=== PATIENT | male | born 2000 | race Hispanic/Latino ===

== ENCOUNTER 2022-01-27 13:41 | Emergency (ER) | payer SELFPAY ==
--- OUTSIDE RECORDS SUMMARY | 2022-01-27 13:44 | XMS REPORT | Continuity of Care Document ---
:2000 Author Organization [facility] t Address [address] [place] [address] Care Team Providers Name Role Phone Pcp, Does Not Have A Primary Care Physician CAIT Attending Clinician Unavailable Doctor Unassigned, Name Attending Clinician Unavailable Problems This patient has no known problems. Allergies, Adverse Reactions, Alerts Allergy Allergy Status Severity Reaction(s) Onset Inactive Treating Comm ents Source Name Type Date Date Clinician NO KNOWN Drug Active Univers ALLERGIE Class ity of S [facility] Social History Social Habit Start Date Stop Date Quantity Comments Source Sex Assigned At [birth year] [facility] 00:00:00 00:00:00 [facility] Smoking Status Start Date Stop Date Source Unknown if ever smoked [facility] Medications This patient has no known medications. Procedures Procedure Date / Time Performed Performing Clinician [facility] e CONSENT/REFUSAL FOR 2022-01-27 14:14:29 Doctor Unassigned, No Un [facility] DIAGNOSIS AND Name [facility] TREATMENT Encounters Start End Encounter Admission Attending Care Care Encounter Source Date/Time Date/Time Type Type Clinicians Facility Department ID 2022-01-27 2022-01-27 Outpatient R CAIT [facility] [id number] Univers 09:20:00 09:20:00 KWADWO lang o f [facility] 2022-01-27 2022-01-27 Orders Doctor MICKEY [id number] Univers 00:00:00 00:00:00 Only Unassigned, CHAVA [id number] [facility] [id number] Jefry as [phone] [place] [id number] Branch Results This patient has no known results.
[2022-01-27] MEDS ORDERED: METOCLOPRAMIDE 10 MG/2mL INJ ONE (16:07)
[2022-01-27] MEDS ORDERED: DIPHENHYDRAMINE 50 MG/ML VIAL ONE (16:07)
[2022-01-27] MEDS ORDERED: NA CHLORIDE 0.9% 1,000 ML ONE (16:08)
[2022-01-27] MEDS ORDERED: FAMOTIDINE 20 MG/2 ML VIAL IV ONE (16:08)
[2022-01-27 16:40] LABS: Absolute Lymphocytes (CBC) 1.5 K/uL (0.7-4.9); Hematocrit 52.7 % (39.6-49.0); Lymphocytes % 15.1 % (15.3-44.8); MPV 8.3 fL (7.6-11.3); RBC Red Blood Cell Count 6.02 M/uL (4.33-5.43)
[2022-01-27 16:53] LABS: Albumin 4.6 g/dL (3.4-5.0); Bilirubin Total 0.9 mg/dL (0.2-1.0); Potassium 3.7 mmol/L (3.5-5.1)
--- NOTE | 2022-01-27 17:20 | RAD REPORT ---
EXAM DESCRIPTION: CTAbdomen Pelvis W Contrast - 01/27/2022 5:14 pm CLINICAL HISTORY: Abdominal pain. ABD PAIN COMPARISON: No comparisons TECHNIQUE: Biphasic CT imaging of the abdomen and pelvis was performed with 100 ml non-ionic IV cont rast. All CT scans are performed using dose optimization technique as appropriate and may include automated exposure control or mA/KV adjustment according to patient size. FINDINGS: The lung bases are clear.Small hiatal hernia. Cholecystectomy. The liver, spleen, pancreas, adrenal glands and kidneys are within normal limits. No bowel obstruction, free air, free fluid or abscess. The appendix is normal. No evidence of signi ficant lymphadenopathy. No suspicious bony findings. IMPRESSION: No acute intra-abdominal or pelvic finding.
--- NOTE | 2022-01-27 17:53 | ER ---
Nurse's Notes [facility] Name: Memo Estevez Age: 21 yrs Sex: Male : 2000 Arrival Date: 01/27/2022 Time: 13:43 Bed 13 Private MD: Diagnosis: Vomiting Presentation: 01/27 14:14 Chief complaint: Patient states: "I have been throwing up a lot. since last night. I jd3 have had this issue before.". Coronavirus screen: At this time, the client does not indicate any symptoms associated with coronavirus-19. Ebola Screen: No symptoms or risks identified at this time. Initial Sepsis Screen: Does the patient meet any 2 criteria? No. Patient's initial sepsis screen is negative. Does the patient have a suspected source of infection? No. Patient's initial sepsis screen is negative. Risk Assessment: Do you want to hurt yourself or someone else? Patient reports no desire to harm self or others. Onset of symptoms was January 26, 2022. 14:14 Method Of Arrival: Ambulatory [facility] 14:14 Acuity: RAMAN 3 jd3 Triage Assessment: 15:30 General: Appears distressed, uncomfortable, Behavior is cooperative, appropriate for bp age, anxious, crying. Pain: Complains of pain in abdomen. EENT: No deficits noted. Neuro: No deficits noted. Cardiovascular: No deficits noted. Respiratory: No deficits noted. GI: Reports nausea, vomiting. : No signs and/or symptoms were reported regarding the genitourinary system. Derm: No deficits noted. Musculoskeletal: No deficits noted. Historical: - Allergies: 14:15 No Known Allergies; jd3 - Home Meds: 14:15 None [Active]; jd3 - PMHx: 14:15 None; jd3 - PSHx: 14:15 Cholecystectomy; jd3 - Immunization history:: Adult Immunizations up to date, Client reports receiving the 1st dose of the Covid vaccine, Flu vaccine is not up to date. - Social history:: Smoking status: Reported history of juuling and/or vaping. Screenin:30 Abuse screen: Denies threats or abuse. Denies injuries from another. Nutritional bp screening: No deficits noted. Tuberculosis screening: No symptoms or risk factors identified. Fall Risk None identified. Assessment: 15:30 General: SEE TRIAGE NOTE. bp 16:30 Reassessment: No changes from previously documented assessment. Patient and/or family bp updated on plan of care and expected duration. Pain level reassessed. GI: Abdomen is non-distended. 18:30 Reassessment: PT D/C HOME AMBULATORY, DX WITH VOMITING. bp Vital Signs: 14:15 BP 140 / 97; Pulse 86; Resp 17 S; Temp 98.2(TE); Pulse Ox 98% on R/A; Weight 104.33 kg jd3 (R); Height 5 ft. 8 in. (172.72 cm) (R); Pain 4/10; 16:30 BP 122 / 61; Pulse 62; Resp 16; Pulse Ox 100% ; bp 14:15 Body Mass Index 34.97 (104.33 kg, 172.72 cm) jd3 ED Course: 13:43 Patient arrived in ED. mr 14:15 Triage completed. jd3 14:16 Arm band placed on. [facility] 14:18 Aurelio Petty PA is PHCP. [facility] 14:18 Sergio Ramsey MD is Attending Physician. m 15:24 Silviano Sheridan, LILLIAN is Primary Nurse. bp 15:30 Patient has correct armband on for positive identification. Bed in low position. Call bp light in reach. Side rails up X2. 16:00 Inserted saline lock: 20 gauge in right forearm, using aseptic technique. Blood bp collected. 17:16 CT Abd/Pelvis - IV Contrast Only In Process Unspecified. EDMS 18:34 No provider procedures requiring assistance completed. IV discontinued, intact, bp bleeding controlled, No redness/swelling at site. Pressure dressing applied. Administered Medications: 16:00 Drug: NS 0.9% 1000 ml Route: IV; Rate: 1 bolus; Site: right forearm; bp 18:35 Follow up: IV Status: Completed infusion; IV Intake: 1000ml bp 16:00 Drug: Pepcid (famotidine) 20 mg Route: IVP; Site: right forearm; bp 17:34 Follow up: Response: No adverse reaction bp 16:00 Drug: Reglan (metoCLOPramide) 20 mg Route: IVP; Site: right forearm; bp 17:34 Follow up: Response: No adverse reaction bp 16:00 Drug: diphenhydrAMINE 12.5 mg Route: IVP; Site: right forearm; bp 17:34 Follow up: Response: No adverse reaction bp Intake: 18:35 IV: 1000ml; Total: 1000ml. bp Outcome: 17:52 Discharge ordered by MD. dudley 18:34 Discharged to home ambulatory. bp 18:34 Condition: stable 18:34 Discharge instructions given to patient, Instructed on discharge instructions, follow up and referral plans. medication usage, Demonstrated understanding of instructions, follow-up care, medications, Prescriptions given X 1. 18:35 Patient left the ED. bp Signatures: Dispatcher [employer] EDMS Aurelio Petty PA PA jmm Rivera, Mary mr WebsterBrandon RN RN jSilviano Rodriguez RN RN bp
--- NOTE | 2022-01-27 17:53 | EDPHYS ---
Physician Documentation [facility] Name: Memo Estevez Age: 21 yrs Sex: Male : 2000 Arrival Date: 01/27/2022 Time: 13:43 Bed 13 Private MD: ED Physician Sergio Ramsey HPI: 01/27 15:35 This 21 yrs old Male presents to ER via Ambulatory with complaints of Vomiting.jmm 15:35 The patient presents to the emergency department with nausea, vomiting. Onset: The jmm symptoms/episode began/occurred acutely, today. Possible causes: flare up of bowel problem. The symptoms are aggravated by nothing. The symptoms are alleviated by nothing. Associated signs and symptoms: Pertinent positives: nausea, vomiting. The patient has experienced similar episodes in the past, several times. Historical: - Allergies: 14:15 No Known Allergies; jd3 - Home Meds: 14:15 None [Active]; jd3 - PMHx: 14:15 None; jd3 - PSHx: 14:15 Cholecystectomy; jd3 - Immunization history:: Adult Immunizations up to date, Client reports receiving the 1st dose of the Covid vaccine, Flu vaccine is not up to date. - Social history:: Smoking status: Reported history of juuling and/or vaping. ROS: 15:35 Constitutional: Negative for fever, chills, and weight loss, Cardiovascular: Negative jmm for chest pain, palpitations, and edema, Respiratory: Negative for shortness of breath, cough, wheezing, and pleuritic chest pain. 15:35 Abdomen/GI: Positive for vomiting. 15:35 All other systems are negative. Exam: 15:35 Constitutional: This is a well developed, well nourished patient who is awake, alert, jmm and in no acute distress. Head/Face: atraumatic. Eyes: EOMI, no conjunctival erythema appreciated ENT: Moist Mucus Membranes Neck: Trachea midline, Supple Chest/axilla: Normal chest wall appearance and motion. Cardiovascular: Regular rate and rhythm. No edema appreciated Respiratory: Normal respirations, no respiratory distress appreciated Abdomen/GI: Non distended, soft Back: Normal ROM Skin: General appearance color normal MS/ Extremity: Moves all extremities, no obvious deformities appreciated, no edema noted to the lower extremities Neuro: Awake and alert Psych: Behavior is normal, Mood is normal, Patient is cooperative and pleasant Vital Signs: 14:15 BP 140 / 97; Pulse 86; Resp 17 S; Temp 98.2(TE); Pulse Ox 98% on R/A; Weight 104.33 kg jd3 (R); Height 5 ft. 8 in. (172.72 cm) (R); Pain 4/10; 16:30 BP 122 / 61; Pulse 62; Resp 16; Pulse Ox 100% ; bp 14:15 Body Mass Index 34.97 (104.33 kg, 172.72 cm) jd3 MDM: 15:35 Patient medically [facility]. [facility] 17:52 Data reviewed: vital signs, nurses notes. [facility] 17:52 Counseling: I had a detailed discussion with the patient and/or guardian regarding: the [facility] historical points, exam findings, and any diagnostic results supporting the discharge/admit diagnosis, lab results, radiology results, the need for outpatient follow up, to return to the emergency department if symptoms worsen or persist or if there are any questions or concerns that arise at home. Response to treatment: the patient's symptoms have markedly improved after treatment, patient is well hydrated. and as a result, I will discharge patient. 01/27 15:36 Order name: CBC with Diff; Complete Time: 16:50 [facility] 01/27 15:36 Order name: CMP; Complete Time: 16:53 [facility] 01/27 15:36 Order name: Lipase; Complete Time: 16:53 [facility] 01/27 15:36 Order name: CT Abd/Pelvis - IV Contrast Only; Complete Time: 17:25 [facility] 01/27 15:36 Order name: IV Saline Lock; Complete Time: 16:49 [facility] 01/27 15:36 Order name: Labs collected and sent; Complete Time: 16:49 [facility] Administered Medications: 16:00 Drug: NS 0.9% 1000 ml Route: IV; Rate: 1 bolus; Site: right forearm; bp 18:35 Follow up: IV Status: Completed infusion; IV Intake: 1000ml bp 16:00 Drug: Pepcid (famotidine) 20 mg Route: IVP; Site: right forearm; bp 17:34 Follow up: Response: No adverse reaction bp 16:00 Drug: Reglan (metoCLOPramide) 20 mg Route: IVP; Site: right forearm; bp 17:34 Follow up: Response: No adverse reaction bp 16:00 Drug: diphenhydrAMINE 12.5 mg Route: IVP; Site: right forearm; bp 17:34 Follow up: Response: No adverse reaction bp Disposition: 19:18 Co-signature as Attending Physician, Sergio Ramsey MD. rn Disposition Summary: 01/27/22 17:52 Discharge Ordered Location: Home [facility] Condition: Stable [facility] Diagnosis - Vomiting [facility] Followup: [facility] - With: Private Physician - When: 2 - 3 days - Reason: Recheck today's complaints, Continuance of care, Re-evaluation by your physician Discharge Instructions: - Discharge Summary Sheet [facility] - Vomiting, Adult [facility] Forms: - Medication Reconciliation Form [facility] - Thank You Letter [facility] - Work release form bd - Antibiotic Education [facility] - Prescription Opioid Use [facility] Prescriptions: - ondansetron 4 mg Oral tablet,disintegrating - place 1 tablet by TRANSLINGUAL route every 4-6 hours As needed; 30 tablet; [facility] Refills: 0, Product Selection Permitted Signatures: Dispatcher [employer] EDAurelio Gilmore PA PA jmm Nieto, Roman, MD MD rn Davies, Jonathon, RN RN jSilviano Rodriguez RN RN bp
[2022-01-27 23:11] VITALS: TEMP 98.2
[2022-01-27 23:12] VITALS: BP 122/61; O2SAT 100
== END 2022-01-27 18:35 | disposition home or self-care (01) ==
LOC: ER 13:41
DX: R11.10 Vomiting, unspecified (principal)
CPT/HCPCS: 36415; 74177; 80053; 83690; 85025; 96361; 96374; 96375; 99284; J1200; J2765; J7030; Q9967

== ENCOUNTER 2022-02-03 21:11 | Inpatient (IN) | payer SELFPAY ==
--- OUTSIDE RECORDS SUMMARY | 2022-02-03 21:14 | XMS REPORT | Continuity of Care Document ---
:[address] [facility] t Address [address] [place] [address] Care Team Providers Name Role Phone Pcp, Does Not Have A Primary Care Physician CAIT Attending Clinician Unavailable Doctor Unassigned, Name Attending Clinician Unavailable Problems This patient has no known problems. Allergies, Adverse Reactions, Alerts Allergy Allergy Status Severity Reaction(s) Onset Inactive Treating Comm ents Source Name Type Date Date Clinician NO KNOWN Drug Active Univers ALLERGIE Class ity of S [facility] Social History Social Habit Start Date Stop Date Quantity Comments Source Sex Assigned At [birth year] [facility] 00:00:00 00:00:00 [facility] Smoking Status Start Date Stop Date Source Unknown if ever smoked [facility] Medications This patient has no known medications. Procedures Procedure Date / Time Performed Performing Clinician [facility] e CONSENT/REFUSAL FOR 2022-01-27 14:14:29 Doctor Unassigned, No Un [facility] DIAGNOSIS AND Name [facility] TREATMENT Encounters Start End Encounter Admission Attending Care Care Encounter Source Date/Time Date/Time Type Type Clinicians Facility Department ID 2022-01-27 2022-01-27 Outpatient R CAIT [facility] [id number] Univers 09:20:00 09:20:00 KWADWO fischer [facility] 2022-01-27 2022-01-27 Orders Doctor MICKEY [id number] Univers 00:00:00 00:00:00 Only Unassigned, CHAVA [id number] ity of [facility] [id number] Jefry as [phone] [place] [id number] Branch Results This patient has no known results.
[2022-02-03] MEDS ORDERED: ONDANSETRON 4 MG/2 ML VIAL ONE (22:50)
[2022-02-03] MEDS ORDERED: FAMOTIDINE 20 MG/2 ML VIAL IV ONE (23:31)
[2022-02-03] MEDS ORDERED: NA CHLORIDE 0.9% 1,000 ML ONE (23:31)
[2022-02-03] MEDS ORDERED: NA CHLORIDE 0.9% 50 ML ONE (23:31)
[2022-02-03] MEDS ORDERED: PROMETHAZINE INJ 25 MG/ML AMP ONE (23:31)
[2022-02-03 23:44] LABS: Absolute Lymphocytes (CBC) 1.5 K/uL (0.7-4.9); Hematocrit 51.9 % (39.6-49.0); Lymphocytes % 12.7 % (15.3-44.8); MPV 8.7 fL (7.6-11.3); RBC Red Blood Cell Count 6.01 M/uL (4.33-5.43)
[2022-02-04 00:16] LABS: Albumin 4.6 g/dL (3.4-5.0); Bilirubin Total 1.1 mg/dL (0.2-1.0); Potassium 3.1 mmol/L (3.5-5.1); Protein, Total 9.2 g/dL (6.4-8.2)
--- NOTE | 2022-02-04 02:11 | EDPHYS ---
Physician Documentation [facility] Name: Memo Estevez Age: 21 yrs Sex: Male : 2000 Arrival Date: 02/03/2022 Time: 21:13 Bed 3 Private MD: ED Physician Memo Mota HPI: 02/04 00:03 This 21 yrs old Male presents to ER via Wheelchair with complaints of kdr Abdominal Pain, Vomiting Blood. 00:03 The patient presents with abdominal pain in the epigastric area, in the upper abdomen, kdr that is diffuse. Onset: The symptoms/episode began/occurred gradually, 1 week(s) ago, Patient has been vomiting since he was here last week on the . He has not had anything like this before.. The symptoms do not radiate. Associated signs and symptoms: none. The symptoms are described as achy, crampy, intermittent. Modifying factors: The symptoms are alleviated by nothing, the symptoms are aggravated by drinking, food. Severity of pain: At its worst the pain was mild moderate in the emergency department the pain is unchanged. The patient has experienced similar episodes in the past, multiple times. The patient has been recently seen by a physician: The patient has been recently seen at the [facility] Emergency Department, last week. Historical: - Allergies: 02/03 21:46 No Known Allergies; lg3 - Home Meds: 21:46 None [Active]; lg3 - PMHx: 21:46 None; lg3 - PSHx: 21:46 Cholecystectomy; lg3 - Immunization history:: Adult Immunizations up to date, Client reports receiving the 1st dose of the Covid vaccine, pfizer X1. - Social history:: Smoking status: Patient denies any tobacco usage or history of. Patient uses alcohol, on a daily basis. only on a social basis. ROS: 02/04 00:03 Constitutional: Negative for fever, chills, and weight loss, Eyes: Negative for injury, kdr pain, redness, and discharge, ENT: Negative for injury, pain, and discharge, Neck: Negative for injury, pain, and swelling, Cardiovascular: Negative for chest pain, palpitations, and edema, Respiratory: Negative for shortness of breath, cough, wheezing, and pleuritic chest pain, Back: Negative for injury and pain, : Negative for injury, bleeding, discharge, and swelling, MS/Extremity: Negative for injury and deformity, Skin: Negative for injury, rash, and discoloration, Neuro: Negative for headache, weakness, numbness, tingling, and seizure activity. Psych: Negative for depression, anxiety, suicide ideation, homicidal ideation, and hallucinations, Allergy/Immunology: Negative for hives, rash, and allergies, Endocrine: Negative for neck swelling, polydipsia, polyuria, polyphagia, and marked weight changes, Hematologic/Lymphatic: Negative for swollen nodes, abnormal bleeding, and unusual bruising. Abdomen/GI: Positive for abdominal pain, nausea and vomiting, Negative for vomiting, diarrhea, constipation, abdominal cramps. Exam: 00:03 Constitutional: This is a well developed, well nourished patient who is awake, alert, kdr and in no acute distress. Head/Face: Normocephalic, atraumatic. Eyes: Pupils equal round and reactive to light, extra-ocular motions intact. Lids and lashes normal. Conjunctiva and sclera are non-icteric and not injected. Cornea within normal limits. Periorbital areas with no swelling, redness, or edema. Neck: Trachea midline, no thyromegaly or masses palpated, and no cervical lymphadenopathy. Supple, full range of motion without nuchal rigidity, or vertebral point tenderness. No Meningismus. Chest/axilla: Normal chest wall appearance and motion. Nontender with no deformity. No lesions are appreciated. Cardiovascular: Regular rate and rhythm with a normal S1 and S2. No gallops, murmurs, or rubs. Normal PMI, no JVD. No pulse deficits. Respiratory: Lungs have equal breath sounds bilaterally, clear to auscultation and percussion. No rales, rhonchi or wheezes noted. No increased work of breathing, no retractions or nasal flaring. Back: No spinal tenderness. No costovertebral tenderness. Full range of motion. Skin: Warm, dry with normal turgor. Normal color with no rashes, no lesions, and no evidence of cellulitis. MS/ Extremity: Pulses equal, no cyanosis. Neurovascular intact. Full, normal range of motion. Neuro: Awake and alert, GCS 15, oriented to person, place, time, and situation. Cranial nerves II-XII grossly intact. Motor strength 5/5 in all extremities. Sensory grossly intact. Cerebellar exam normal. Normal gait. Psych: Awake, alert, with orientation to person, place and time. Behavior, mood, and affect are within normal limits. 00:03 Abdomen/GI: Inspection: abdomen appears normal, obese Bowel sounds: active, diminished, in all quadrants, Palpation: soft, mild abdominal tenderness, in the abdomen diffusely. Vital Signs: 02/03 21:40 BP 135 / 88; Pulse 73; Resp 17 S; Temp 97.6(O); Pulse Ox 100% on R/A; Weight 102.06 kg lg3 (R); Height 5 ft. 8 in. (172.72 cm) (R); Pain 0/10; 23:39 BP 146 / 81; Pulse 60; Resp 19; Pulse Ox 99% on R/A; 5 02/04 00:00 BP 142 / 93; Pulse 59; Resp 17; Pulse Ox 99% on R/A; 5 01:32 BP 132 / 91; Pulse 55; Resp 16; Pulse Ox 100% on R/A; [facility] 02/03 21:40 Body Mass Index 34.21 (102.06 kg, 172.72 cm) lg3 MDM: 00:03 Data reviewed: vital signs, nurses notes, lab test result(s), radiologic studies. kdr Counseling: I had a detailed discussion with the patient and/or guardian regarding: the historical points, exam findings, and any diagnostic results supporting the discharge/admit diagnosis, lab results, radiology results, the need for outpatient follow up. 02:10 Patient medically screened. [facility] 02/03 21:57 Order name: CBC with Diff [facility] 02/03 21:57 Order name: CMP [facility] 02/03 21:57 Order name: Lipase [facility] 02/03 21:57 Order name: Type And Screen; Complete Time: 02:28 [facility] 02/03 23:04 Order name: ETOH Level; Complete Time: 01:23 [facility] 02/03 23:04 Order name: UDS [facility] 02/03 23:57 Order name: CT Abd/Pelvis - IV Contrast Only [facility] 02/04 01:45 Order name: US Abdomen Limited [facility] 02/04 02:06 Order name: Hepatitis Panel [facility] 02/04 02:30 Order name: COVID-19/FLU A+B (Document "Date of Onset" if Symptomatic) [facility] 02/03 21:57 Order name: IV Saline Lock; Complete Time: 22:40 kdr 02/03 21:57 Order name: Labs collected and sent; Complete Time: 22:41 kdr Administered Medications: 02/03 22:49 Drug: Zofran (Ondansetron) 4 mg Route: IVP; Site: right antecubital; [facility] 02/04 00:39 Follow up: Response: Vomiting unchanged [facility] 02/03 23:37 Drug: Pepcid (famotidine) 20 mg Route: IVP; Site: right antecubital; [facility] 02/04 00:39 Follow up: Response: No adverse reaction [facility] 02/03 23:37 Drug: Phenergan (promethazine) 25 mg Route: IVP; Site: right antecubital; [facility] 02/04 00:39 Follow up: Response: Vomiting decreased [facility] 02/03 23:38 Drug: NS 0.9% 1000 ml Route: IV; Rate: 1 bolus; Site: right antecubital; [facility] Disposition Summary: 02/04/22 02:10 Hospitalization Ordered Hospitalization Status: Observation kdr Provider: Ronaldo Lopez kdr Location: Telemetry/MedSurg (observation) kdr Condition: Fair kdr Problem: an ongoing problem kdr Symptoms: have improved kdr Bed/Room Type: Standard [facility] Room Assignment: 223(02/04/22 03:58) cg Diagnosis - Abdominal pain, Generalized kdr - Vomiting kdr - Dehydration kdr - Acute viral hepatitis, unspecified kdr Forms: - Medication Reconciliation Form kdr - SBAR form kdr Signatures: Dispatcher [employer] EDMS Memo Mota MD MD kdr Thais Martinez RN RN Fior Barraza RN RN lg3 Yamile Jensen RN RN sm5 Shannan Devi PA PA sb3 Corrections: (The following items were deleted from the chart) 22:43 21:57 Urine Test ordered. kdr vc1 02/04 03:58 02:10 kdr cg
--- NOTE | 2022-02-04 02:11 | ER ---
Nurse's Notes [facility] Name: Memo Estevez Age: 21 yrs Sex: Male : 2000 Arrival Date: 02/03/2022 Time: 21:13 Bed 3 Private MD: Diagnosis: Abdominal pain, Generalized;Vomiting;Dehydration;Acute viral hepatitis, unspecified Presentation: 02/03 21:40 Chief complaint: Patient states: vomiting for 1 week. getting worse. now vomiting small lg3 amounts of blood. Coronavirus screen: At this time, unable to obtain information related to travel outside the [place] At this time, the client does not indicate any symptoms associated with coronavirus-19. Ebola Screen: No symptoms or risks identified at this time. Initial Sepsis Screen: Does the patient meet any 2 criteria? No. Patient's initial sepsis screen is negative. Does the patient have a suspected source of infection? No. Patient's initial sepsis screen is negative. Risk Assessment: Do you want to hurt yourself or someone else? Patient reports no desire to harm self or others. Onset of symptoms is unknown. 21:40 Method Of Arrival: Wheelchair lg3 21:40 Acuity: RAMAN 3 lg3 Triage Assessment: 21:46 General: Appears in no apparent distress. uncomfortable, Behavior is cooperative, lg3 fussy. Pain: Denies pain. EENT: No deficits noted. No signs and/or symptoms were reported regarding the EENT system. Neuro: No deficits noted. Level of Consciousness is awake, alert, obeys commands, Oriented to person, place, time, situation. Cardiovascular: No deficits noted. Denies chest pain, shortness of breath. Respiratory: No deficits noted. Airway is compromised Trachea midline Respiratory effort is even, unlabored, Respiratory pattern is regular, symmetrical. GI: Abdomen is round non-distended, Bowel sounds present X 4 quads. Abd is soft and non tender X 4 quads. : No deficits noted. No signs and/or symptoms were reported regarding the genitourinary system. Derm: No deficits noted. No signs and/or symptoms reported regarding the dermatologic system. Skin is intact, is healthy with good turgor, Skin is dry, Skin is pink, warm \T\ dry. Musculoskeletal: No deficits noted. No signs and/or symptoms reported regarding the musculoskeletal system. Circulation, motion, and sensation intact. Capillary refill < 3 seconds, Range of motion: intact in all extremities. Historical: - Allergies: 21:46 No Known Allergies; lg3 - Home Meds: 21:46 None [Active]; lg3 - PMHx: 21:46 None; lg3 - PSHx: 21:46 Cholecystectomy; lg3 - Immunization history:: Adult Immunizations up to date, Client reports receiving the 1st dose of the Covid vaccine, pfizer X1. - Social history:: Smoking status: Patient denies any tobacco usage or history of. Patient uses alcohol, on a daily basis. only on a social basis. Screenin:48 Abuse screen: Denies threats or abuse. Denies injuries from another. Nutritional lg3 screening: No deficits noted. Tuberculosis screening: No symptoms or risk factors identified. Fall Risk None identified. Assessment: 22:15 General: Appears in no apparent distress. Behavior is cooperative. Pain: Complains of sm5 pain in abdomen. Neuro: No deficits noted. Level of Consciousness is awake, alert, obeys commands, Oriented to person, place, time, situation. Cardiovascular: No deficits noted. Capillary refill < 3 seconds Patient's skin is warm and dry. Respiratory: No deficits noted. Airway is patent Trachea midline Respiratory effort is even, unlabored. GI: Reports nausea, vomiting. 23:33 Reassessment: No changes from previously documented assessment. Patient and/or family sm5 updated on plan of care and expected duration. Pain level reassessed. 02/04 00:39 Reassessment: No changes from previously documented assessment. 5 Vital Signs: 02/03 21:40 BP 135 / 88; Pulse 73; Resp 17 S; Temp 97.6(O); Pulse Ox 100% on R/A; Weight 102.06 kg lg3 (R); Height 5 ft. 8 in. (172.72 cm) (R); Pain 0/10; 23:39 BP 146 / 81; Pulse 60; Resp 19; Pulse Ox 99% on R/A; sm5 02/04 00:00 BP 142 / 93; Pulse 59; Resp 17; Pulse Ox 99% on R/A; sm5 01:32 BP 132 / 91; Pulse 55; Resp 16; Pulse Ox 100% on R/A; sm5 02/03 21:40 Body Mass Index 34.21 (102.06 kg, 172.72 cm) lg3 ED Course: 02/03 21:13 Patient arrived in ED. ds1 21:46 Triage completed. lg3 21:46 Arm band placed on right wrist. lg3 21:54 Yamile Jensen, RN is Primary Nurse. sm5 21:56 Memo Mota MD is Attending Physician. kdr 22:30 Inserted saline lock: 22 gauge in right antecubital area, using aseptic technique. vc1 Blood collected. 02/04 00:55 CT Abd/Pelvis - IV Contrast Only In Process Unspecified. EDMS 02:09 Ronaldo Lopez is Hospitalizing Provider. kdr 02:10 US Abdomen Limited In Process Unspecified. EDMS 02:20 Hepatitis Panel Sent. 5 Administered Medications: 02/03 22:49 Drug: Zofran (Ondansetron) 4 mg Route: IVP; Site: right antecubital; 5 02/04 00:39 Follow up: Response: Vomiting unchanged 5 02/03 23:37 Drug: Pepcid (famotidine) 20 mg Route: IVP; Site: right antecubital; 5 02/04 00:39 Follow up: Response: No adverse reaction 5 02/03 23:37 Drug: Phenergan (promethazine) 25 mg Route: IVP; Site: right antecubital; 5 02/04 00:39 Follow up: Response: Vomiting decreased 5 02/03 23:38 Drug: NS 0.9% 1000 ml Route: IV; Rate: 1 bolus; Site: right antecubital; 5 Outcome: 02/04 02:10 Decision to Hospitalize by Provider. kdr 04:51 Patient left the ED. ll3 Signatures: Dispatcher [employer] EDMS Memo Mota MD MD kdr Holly Ontiveros ds1 Fior Farooq RN RN lg3 Von Doyle RN RN 3 Yamile Jensen, LILLIAN SNYDER 5 Eleni Knight RN RN vc1 Corrections: (The following items were deleted from the chart) 02/03 22:40 22:40 Inserted saline lock: 22 gauge in right antecubital area, using aseptic vc1 technique. Blood collected. vc1
--- NOTE | 2022-02-04 02:58 | P.HP ---
Certification for Inpatient Patient admitted to: Observation With expected LOS: <2 Midnights Patient will require the following post-hospital care: None Practitioner: I am a practitioner with admitting privileges, knowledge of patient current condition, hospital course, and medical plan of care. Services: Services provided to patient in accordance with Admission requirements found in Title 42 Section 412.3 of the Code of Federal Regulations Patient History Date of Service: 02/04/22 Reason for admission: Abd Pain, N/V History of Present Illness: Patient is a 21-year-old male with no past medical history who presented to the ED with a 1 week history of abdominal pain, nausea, and vomiting. Patient reports that he had a cholecystectomy about 1 year ago and has had intermittent abdominal pain ever since. He came to the ER 1 week ago where his CT abdomen and lab work were benign and he was discharged with zofran. His symptoms did not improve so he returned today. Labs significant for white blood cell 11.4, potassium 3.1, creatinine 1.38, AST and ALT both elevated. CT abdomen and ultrasound negative. He received Zofran, Phenergan, Pepcid, fluids in the ED with minimal improvement. ED provider wishes to admit patient for observation. Allergies No Known Allergies Allergy (Unverified 02/04/22 03:57) - Past Medical/Surgical History Diabetic: No Past Medical History: Patient denies medical history -: Cholecystectomy Psychosocial/ Personal History: Patient lives at home with a roommate. - Social History Smoking Status: Never smoker Alcohol use: Yes CD- Drugs: No Caffeine use: Yes Place of Residence: Home Review of Systems Gastrointestinal: Nausea, Vomiting, Abdominal Pain Physical Examination - Physical Exam General: Alert, In no apparent distress, Oriented x3 HEENT: Atraumatic, PERRLA, Mucous membr. moist/pink, EOMI, Sclerae nonicteric Neck: Supple, 2+ carotid pulse no bruit, No LAD, Without JVD or thyroid abnormality Respiratory: Clear to auscultation bilaterally, Normal air movement Cardiovascular: Regular rate/rhythm, Normal S1 S2 Gastrointestinal: Normal bowel sounds, Hypoactive, Non-distended, No tenderness, No masses, No rebound, No guarding Musculoskeletal: No tenderness Integumentary: No rashes Neurological: Normal speech, Normal strength at 5/5 x4 extr, Normal tone, Normal affect - Studies Laboratory Data (last 24 hrs) 02/03/22 22:30: Sodium 136, Potassium 3.1 L, BUN 8, Creatinine 1.38 H, Glucose 96, Total Bilirubin 1.1 H, AST 746 H* D, ALT 322 H* D, Alkaline Phosphatase 90, Lipase 113 02/03/22 22:30: WBC 11.4 H D, Hgb 17.9, Hct 51.9 H, Plt Count 231 Assessment and Plan - Problems (Diagnosis) (1) Abdominal pain Current Visit: Yes Status: Acute Qualifiers: Abdominal location: right upper quadrant Qualified Code(s): R10.11 - Right upper quadrant pain (2) Nausea & vomiting Current Visit: Yes Status: Acute Qualifiers: Vomiting type: unspecified Qualified Code(s): R11.2 - Nausea with vomiting, unspecified (3) Elevated LFTs Current Visit: Yes Status: Acute (4) Hypokalemia Current Visit: Yes Status: Acute - Plan -cont IVF at 125 cc/hr -K low at 3.1. on replacement protocol -AST and ALT both elevated. Will trend. CT and US negative. Hepatitis panel pending. -promethazine PRN nausea -full liquid diet as tolerated -lovenox for DVT PPx Discharge Plan: Home Plan to discharge in: 24 Hours - Advance Directives Does patient have a Living Will: No Does patient have a Durable POA for Healthcare: No - Code Status/Comfort Care Code Status Assessed: Yes (Full) Critical Care: No Time Spent Managing Pts Care (In Minutes): 55
[2022-02-04 03:52] LABS: SARS-COV-2 RT PCR NEGATIVE (NEGATIVE)
[2022-02-04] MEDS ORDERED: MORPHINE 2 MG/ML SYR IV PRN (05:05)
[2022-02-04] MEDS ORDERED: ACETAMINOPHEN 500 MG TAB PO PRN (05:05)
[2022-02-04] MEDS: NA CHLORIDE 0.9% 1,000 ML IV SCH ×3 (05:24→23:16)
[2022-02-04] MEDS: PROMETHAZINE INJ 25 MG/ML AMP IV PRN ×4 (05:24→23:16)
[2022-02-04 06:03] LABS: BUN Blood Urea Nitrogen 7 mg/dL (7-18); Bicarbonate 22 mmol/L (21-32); Glucose Level 137 mg/dL (74-106); Potassium 3.9 mmol/L (3.5-5.1); Sodium Level 136 mmol/L (136-145)
[2022-02-04] MEDS: ENOXAPARIN 40 MG/0.4 ML SQ SCH (08:05)
[2022-02-04] MEDS ORDERED: POTASSIUM CL SA 10 MEQ TAB PO ONE (09:00)
--- NOTE | 2022-02-04 11:27 | RAD REPORT ---
EXAM DESCRIPTION: MRI - Cholangiogram - 02/04/2022 11:17 am CLINICAL HISTORY: Abdominal pain, elevated LFT COMPARISON: Abdomen Pelvis W Contrast dated 02/04/2022; Abdomen Exam Limited dated 02/04/2022 FINDINGS: Three-dimensional MRCP was performed using maximum intensity projection reconstruction on the same work station. No intrahepatic biliary tree dilatation is seen. The common bile duct is normal caliber without evide nce of retained stone, stricture or mass. The pancreatic duct is not pathologically dilated. Cholecystectomy. Limited T2 sequences through the abdomen demonstrates no bulky adenopathy, significant free fluid or abscess. IMPRESSION: Negative MR cholangiogram status post cholecystectomy.
--- NOTE | 2022-02-04 11:47 | RAD REPORT ---
EXAM DESCRIPTION: CT ABDOMEN AND PELVIS WITH CONTRAST CLINICAL HISTORY: Epigastric pain COMPARISON: 01/27/2022 TECHNIQUE: CT of the abdomen and pelvis performed following IV administration of iodinated contras t. This exam was performed according to our departmental dose-optimization program, which includes au tomated exposure control, adjustment of the mA and/or kV according to patient size and/or use of iter ative reconstruction technique. FINDINGS: Lung Bases: The visualized lung bases are clear. Bones: No destructive bone lesions identified. Abdomen: Liver: The liver has normal size and density. No intrahepatic biliary dilatation. Gallbladder: Prior cholecystectomy. Spleen, Pancreas, and Adrenal Glands: The spleen, pancreas, and adrenal glands are unremarkable. Kidneys: No hydronephrosis or obstructing calculus. Vasculature: The aorta and IVC have normal caliber and position. The portal vein is patent. The pro ximal visceral and renal arteries are patent. Stomach: Small hiatal hernia. Other: No free intraperitoneal air. No free fluid or lymphadenopathy. Pelvis: Bladder: Urinary bladder is unremarkable. Bowel: No dilated loops of large or small bowel. Appendix: Normal appendix. Pelvis: Prostate is not enlarged. IMPRESSION: 1. No acute inflammatory or obstructive process identified. 2. Small hiatal hernia. Electronically signed by: Danny Porter 02/04/2022 1:26 AM CDT Due to temporary technical issues with the PACS/Fluency reporting system, reports are being signed by the in house radiologists without review as a courtesy to insure prompt reporting. The interpreting radiologist is fully responsible for the content of the report.
--- NOTE | 2022-02-04 13:28 | RAD REPORT ---
EXAM DESCRIPTION: US Abdomen Limited, Right Upper Quadrant CLINICAL HISTORY: ABD PAIN TECHNIQUE: Real-time ultrasound of the right upper quadrant with image documentation. COMPARISON: Abdomen pelvis CT dated 02/04/2022 FINDINGS: Liver: Unremarkable as visualized. Gallbladder: Prior cholecystectomy. Common bile duct: The common bile duct measures 5 mm in diameter. No stones. No dilation. Right kidney: Unremarkable as visualized. IMPRESSION: Prior cholecystectomy. No biliary dilatation. Electronically signed by: Jimmy Bernal MD 02/04/2022 2:40 AM CDT Due to temporary technical issues with the PACS/Fluency reporting system, reports are being signed by the in house radiologists without review as a courtesy to insure prompt reporting. The interpreting radiologist is fully responsible for the content of the report.
[2022-02-04 15:48] LABS: Barbiturates NEGATIVE (NEGATIVE); Benzodiazepines NEGATIVE (NEGATIVE); Cocaine NEGATIVE (NEGATIVE); METHAMPHETAM NEGATIVE (NEGATIVE); Phencyclidine NEGATIVE (NEGATIVE); THC Cannibis NEGATIVE (NEGATIVE)
[2022-02-04 15:49] LABS: Methadone NEGATIVE (NEGATIVE)
--- NOTE | 2022-02-04 16:31 | P.PN ---
Date of Service: 02/04/22 Patient seen and examined. He states that abdominal pain is much better. He is tolerating full liquid diet. Diagnosis: Elevated LFTs. Abdominal pain. Plan: Cholecystectomy started MRCP unremarkable. Hepatitis profile requested. Monitor LFT for improvement IV hydration. Advance diet as tolerated.
[2022-02-04 16:34] LABS: Opiates POSITIVE (NEGATIVE)
[2022-02-04] MEDS: FAMOTIDINE 20 MG TAB PO SCH (20:15)
[2022-02-04] MEDS: ONDANSETRON 4 MG/2 ML VIAL IV PRN (20:15)
[2022-02-05 05:03] VITALS: BMI 30.5
[2022-02-05] MEDS: PROMETHAZINE INJ 25 MG/ML AMP IV PRN ×3 (05:05→21:39)
[2022-02-05] MEDS: NA CHLORIDE 0.9% 1,000 ML IV SCH ×3 (05:07→16:30)
[2022-02-05 06:15] LABS: ALT/SGPT 195 U/L (12-78); AST/SGOT 193 U/L (15-37); Albumin 3.6 g/dL (3.4-5.0); Alkaline Phosphatase 67 U/L (45-117); BUN Blood Urea Nitrogen 11 mg/dL (7-18); Bicarbonate 26 mmol/L (21-32); Bilirubin Total 0.7 mg/dL (0.2-1.0); Glucose Level 99 mg/dL (74-106); Potassium 3.7 mmol/L (3.5-5.1); Protein, Total 7.3 g/dL (6.4-8.2); Sodium Level 140 mmol/L (136-145)
[2022-02-05] MEDS: ENOXAPARIN 40 MG/0.4 ML SQ SCH ×2 (08:32→08:38)
[2022-02-05] MEDS: FAMOTIDINE 20 MG TAB PO SCH (08:33)
[2022-02-05] MEDS ORDERED: POTASSIUM CL SA 10 MEQ TAB PO ONE (09:00)
[2022-02-05] MEDS: ONDANSETRON 4 MG/2 ML VIAL IV PRN ×2 (13:45→19:30)
--- NOTE | 2022-02-05 14:47 | P.DS ---
Admission Date: 02/05/22 Discharge Date: 02/06/22 Disposition: ROUTINE DISCHARGE Discharge Condition: FAIR Reason for Admission: Abd Pain, N/V - Problems (1) Abdominal pain Status: Acute Qualifiers: Abdominal location: right upper quadrant Qualified Code(s): R10.11 - Right upper quadrant pain (2) Elevated LFTs Status: Acute (3) Hypokalemia Status: Acute (4) Nausea & vomiting Status: Acute Qualifiers: Vomiting type: unspecified Qualified Code(s): R11.2 - Nausea with vomiting, unspecified Brief History of Present Illness: Patient is a 21-year-old male with no past medical history who presented to the ED with a 1 week history of abdominal pain, nausea, and vomiting. Patient reports that he had a cholecystectomy about 1 year ago and has had intermittent abdominal pain ever since. He came to the ER 1 week ago where his CT abdomen and lab work were benign and he was discharged with zofran. His symptoms did not improve so he returned. Labs significant for white blood cell 11.4, potassium 3.1, creatinine 1.38, AST and ALT both elevated. CT abdomen and ultrasound negative. He received Zofran, Phenergan, Pepcid, fluids in the ED with minimal improvement. Patient hospitalized for further management. Hospital Course: Patient was treated with supportive measures including IV fluids, antiemetics and pain medications. MRCP was done which was unremarkable. LFT trended down significantly with monitoring. Patient's symptoms resolved. He tolerated diet advancement. Case discussed with GI Dr. Marcelino who recommended follow-up with him in the office for arrangement for EGD and possible ERCP. Patient is ambulatory, denies any abdominal pain or nausea or vomiting. He has tolerated full liquid diet, he is discharged to follow with Dr. Marcelino. Vital Signs/Physical Exam: Temp Pulse Resp BP Pulse Ox 98.5 F 76 20 96/53 L 95 02/05/22 12:00 02/05/22 12:00 02/05/22 12:00 02/05/22 12:00 02/05/22 12:00 General: Alert, In no apparent distress HEENT: Mucous membr. moist/pink Neck: Supple, JVD not distended, No Thyromegaly Respiratory: Clear to auscultation bilaterally, Normal air movement Cardiovascular: No edema, Regular rate/rhythm, Normal S1 S2, No murmurs Gastrointestinal: Normal bowel sounds, Soft and benign, Non-distended, No tenderness Musculoskeletal: No swelling, No tenderness Integumentary: No rashes, No erythema Neurological: Normal strength at 5/5 x4 extr Laboratory Data at Discharge: WBC 11.4 K/uL (4.3-10.9) H D 02/03/22 22:30 Hgb 17.9 g/dL (13.6-17.9) 02/03/22 22:30 Hct 51.9 % (39.6-49.0) H 02/03/22 22:30 Plt Count 231 K/uL (152-406) 02/03/22 22:30 Sodium 140 mmol/L (136-145) 02/05/22 05:40 Potassium 3.7 mmol/L (3.5-5.1) 02/05/22 05:40 BUN 11 mg/dL (7-18) 02/05/22 05:40 Creatinine 1.01 mg/dL (0.55-1.3) 02/05/22 05:40 Glucose 99 mg/dL (74-106) 02/05/22 05:40 Total Bilirubin 0.7 mg/dL (0.2-1.0) 02/05/22 05:40 AST 193 U/L (15-37) H D 02/05/22 05:40 ALT 195 U/L (12-78) H D 02/05/22 05:40 Alkaline Phosphatase 67 U/L (45-117) 02/05/22 05:40 Lipase 113 U/L (73-393) 02/03/22 22:30 Home Medications: Ondansetron [Zofran] 4 mg PO Q6H PRN #30 tab 02/05/22 Pantoprazole Sodium [Protonix] 40 mg PO BID #60 tablet. 02/05/22 Sucralfate 10 ml PO TIDWM #420 oral.susp 02/06/22 New Medications: Pantoprazole Sodium [Protonix] 40 mg PO BID #60 tablet. Sucralfate 10 ml PO TIDWM #420 oral.susp Ondansetron [Zofran] 4 mg PO Q6H PRN #30 tab PRN Reason: Nausea / Vomiting Diet: Regular (start with soft and progress as tolerated) Activity: Ad gonzalo Followup: Kodi White MD [ACTIVE - CAN ADMIT] - 1 Week (Elevated LFT, Prior history of cholecystectomy.) Time spent managing pt's care (in minutes): 36
--- NOTE | 2022-02-05 16:07 | P.PN ---
Subjective Date of Service: 02/05/22 Chief Complaint: Abd Pain, N/V Patient denies any abdominal pain. He vomited full liquid diet today. LFT trended down significantly. Physical Examination - Vital Signs Temperature: 98.5 F Blood Pressure: 96/53 Pulse: 76 Respirations: 20 Pulse Ox (%): 95 - Physical Exam General: Alert, In no apparent distress, Oriented x3 HEENT: Mucous membr. moist/pink Neck: JVD not distended Respiratory: Clear to auscultation bilaterally, Normal air movement Cardiovascular: No edema, Regular rate/rhythm, Normal S1 S2 Gastrointestinal: Normal bowel sounds, Soft and benign, Non-distended, No tenderness Musculoskeletal: No swelling, No tenderness Integumentary: No rashes, No erythema, No cyanosis Neurological: Normal speech, Normal strength at 5/5 x4 extr Assessment And Plan - Current Problems (Diagnosis) (1) Abdominal pain Current Visit: Yes Status: Acute Qualifiers: Abdominal location: right upper quadrant Qualified Code(s): R10.11 - Right upper quadrant pain (2) Elevated LFTs Current Visit: Yes Status: Acute (3) Hypokalemia Current Visit: Yes Status: Acute (4) Nausea & vomiting Current Visit: Yes Status: Acute Qualifiers: Vomiting type: unspecified Qualified Code(s): R11.2 - Nausea with vomiting, unspecified - Plan Continue supportive measures. IV hydration, antiemetic. IV Protonix and sucralfate. GI consult. Mother reports history of peptic ulcer. LFT has trended down significantly. Continue to monitor LFT.
[2022-02-05] MEDS ORDERED: SODIUM CHLORIDE 0.9% 10ML INJ IV PRN (16:08)
[2022-02-05] MEDS: SUCRALFATE 1GM/10ML UCUP PO SCH ×2 (16:41→21:33)
[2022-02-05] MEDS: PANTOPRAZOLE 40 MG INJ IVP SCH (21:33)
[2022-02-05] MEDS: ENSURE HIGH PROTEIN 237 ML CAN PO SCH (21:45)
[2022-02-06 02:35] VITALS: O2SAT 99
[2022-02-06] MEDS: NA CHLORIDE 0.9% 1,000 ML IV SCH ×2 (03:02→12:09)
[2022-02-06 06:29] LABS: Absolute Lymphocytes (CBC) 3.1 K/uL (0.7-4.9); Hematocrit 45.8 % (39.6-49.0); MPV 7.8 fL (7.6-11.3); RBC Red Blood Cell Count 5.21 M/uL (4.33-5.43)
[2022-02-06 06:47] LABS: Albumin 3.4 g/dL (3.4-5.0); Bilirubin Total 0.6 mg/dL (0.2-1.0); Potassium 3.5 mmol/L (3.5-5.1)
[2022-02-06] MEDS: SUCRALFATE 1GM/10ML UCUP PO SCH ×2 (07:30→11:30)
[2022-02-06] MEDS: ENSURE HIGH PROTEIN 237 ML CAN PO SCH (09:00)
[2022-02-06] MEDS: ENOXAPARIN 40 MG/0.4 ML SQ SCH ×2 (09:00→11:00)
[2022-02-06] MEDS: PANTOPRAZOLE 40 MG INJ IVP SCH (11:00)
[2022-02-06 14:05] VITALS: BP 119/59; TEMP 98.2
[2022-02-06 14:18] LABS: HBsAG Nonreactive (Nonreactive)
== END 2022-02-06 12:47 | disposition home or self-care (01) | DRG 392 ==
LOC: ER 21:11 → ERHOLD 02-04 02:51 → 2ND 02-04 04:27 → OBSVTOIN 02-05 16:15
PROVIDERS: ADMIT Internal Medicine; ATTEND Internal Medicine
DX: R10.11 Right upper quadrant pain (principal); R79.89 Other specified abnormal findings of blood chemistry; E87.6 Hypokalemia; R11.2 Nausea with vomiting, unspecified; Z90.49 Acquired absence of other specified parts of digestive tract; Z20.822 Contact with and (suspected) exposure to COVID-19
CPT/HCPCS: 0240U; 36415; 74177; 74181; 76705; 80048; 80053; 80074; 80307; 80320; 83690; 85025; 86850; 86900; 86901; 96374; 96375; 99284; C9113; G0378; J1650; J2405; J2550; J3490; J7030; Q9967

== ENCOUNTER 2022-02-06 21:33 | Emergency (ER) | payer SELFPAY ==
--- OUTSIDE RECORDS SUMMARY | 2022-02-06 21:35 | XMS REPORT | Continuity of Care Document ---
:2000 Author Organization [facility] t Address [address] [place] [address] Care Team Providers Name Role Phone Pcp, Does Not Have A Primary Care Physician CAIT Attending Clinician Unavailable Doctor Unassigned, Name Attending Clinician Unavailable Problems This patient has no known problems. Allergies, Adverse Reactions, Alerts Allergy Allergy Status Severity Reaction(s) Onset Inactive Treating Comm ents Source Name Type Date Date Clinician NO KNOWN Drug Active Univers ALLERGIE Class ity of S [facility] Social History Social Habit Start Date Stop Date Quantity Comments Source Sex Assigned At [birth year] [facility] 00:00:00 00:00:00 [facility] Smoking Status Start Date Stop Date Source Unknown if ever smoked [facility] Medications This patient has no known medications. Procedures Procedure Date / Time Performed Performing Clinician [facility] e CONSENT/REFUSAL FOR 2022-01-27 14:14:29 Doctor Unassigned, No Un [facility] DIAGNOSIS AND Name [facility] Branch TREATMENT Encounters Start End Encounter Admission Attending Care Care Encounter Source Date/Time Date/Time Type Type Clinicians Facility Department ID 2022-01-27 2022-01-27 Outpatient R CAIT [facility] [id number] [facility] 09:20:00 09:20:00 KWADWO fischer [facility] 2022-01-27 2022-01-27 Orders Doctor MICKEY [id number] [facility] 00:00:00 00:00:00 Only Unassigned, CHAVA [id number] ity of [facility] [id number] Jefry as [phone] [place] [id number] Branch Results This patient has no known results.
[2022-02-06] MEDS ORDERED: PROMETHAZINE INJ 25 MG/ML AMP ONE ×2 (22:12→23:13)
[2022-02-06] MEDS ORDERED: NA CHLORIDE 0.9% 1,000 ML ONE (22:12)
[2022-02-06] MEDS ORDERED: FAMOTIDINE 20 MG/2 ML VIAL IV ONE (22:12)
[2022-02-06 22:13] LABS: Absolute Lymphocytes (CBC) 1.7 K/uL (0.7-4.9); Hematocrit 49.1 % (39.6-49.0); RBC Red Blood Cell Count 5.71 M/uL (4.33-5.43)
[2022-02-06 22:30] LABS: Bilirubin Total 0.8 mg/dL (0.2-1.0); Potassium 3.2 mmol/L (3.5-5.1); Protein, Total 8.2 g/dL (6.4-8.2)
--- NOTE | 2022-02-07 00:34 | ER ---
Nurse's Notes [facility] Name: Memo Estevez Age: 21 yrs Sex: Male : 2000 Arrival Date: 02/06/2022 Time: 21:35 Bed 7 Private MD: Diagnosis: Cyclical vomiting, not intractable Presentation: 02/06 21:47 Chief complaint: Patient states: pt c/o nausea and vomiting for approx 1 week. pt was as6 admitted for n/v and discharged today. Coronavirus screen: At this time, the client does not indicate any symptoms associated with coronavirus-19. Ebola Screen: No symptoms or risks identified at this time. Initial Sepsis Screen: Does the patient meet any 2 criteria? No. Patient's initial sepsis screen is negative. Does the patient have a suspected source of infection? No. Patient's initial sepsis screen is negative. Risk Assessment: Do you want to hurt yourself or someone else? Patient reports no desire to harm self or others. Onset of symptoms is unknown. 21:47 Method Of Arrival: Wheelchair as6 21:47 Acuity: RAMAN 3 as6 Triage Assessment: 21:51 General: Appears uncomfortable, ill, Behavior is cooperative, restless. Pain: Denies as6 pain. EENT: Oral mucosa is dry. Neuro: Level of Consciousness is awake, alert, obeys commands, Oriented to person, place, time, situation. Cardiovascular: JVD is absent. Respiratory: Respiratory effort is even, unlabored, Respiratory pattern is regular, symmetrical. GI: Reports nausea, vomiting, since one week. Derm: Skin is intact. Historical: - Allergies: 21:51 No Known Allergies; as6 - Home Meds: 21:51 None [Active]; as6 - PMHx: 21:51 None; as6 - PSHx: 21:51 Cholecystectomy; as6 - Immunization history:: Client reports receiving the 2nd dose of the Covid vaccine, pfizer. - Social history:: Smoking status: Patient denies any tobacco usage or history of. - Family history:: not pertinent. - Hospitalizations: : The patient was recently seen at [facility]. Screenin:52 Abuse screen: Denies threats or abuse. Denies injuries from another. Nutritional as6 screening: No deficits noted. Tuberculosis screening: No symptoms or risk factors identified. Fall Risk None identified. Assessment: 22:25 General: Appears. GI: Abdomen is round non-distended, Bowel sounds present X 4 quads. ke1 Abd is soft and non tender X 4 quads. Reports nausea, Patient currently denies abdominal pain. 23:15 Reassessment: Patient appears in no apparent distress at this time. Patient states ke1 feeling better. 02/07 00:27 Reassessment: Patient appears in no apparent distress at this time. Patient states ke1 feeling better. Patient states symptoms have improved. Vital Signs: 02/06 21:47 BP 134 / 98; Pulse 73; Resp 20 S; Temp 98.4(O); Pulse Ox 96% on R/A; Weight 90.72 kg as6 (R); Height 5 ft. 8 in. (172.72 cm) (R); Pain 0/10; 22:16 BP 126 / 78; Pulse 53; Resp 18; Pulse Ox 100% on R/A; ke1 23:16 BP 138 / 84; Pulse 73; Resp 18; Pulse Ox 100% on R/A; ke1 02/07 00:28 BP 138 / 98; Pulse 58; Resp 18; Pulse Ox 99% on R/A; ke1 02/06 21:47 Body Mass Index 30.41 (90.72 kg, 172.72 cm) as6 ED Course: 02/06 21:35 Patient arrived in ED. ja2 21:36 Sergio Ramsey MD is Attending Physician. rn 21:49 Alex Chambers RN is Primary Nurse. ke1 21:51 Triage completed. as6 21:52 Arm band placed on. as6 21:53 Bed in low position. Call light in reach. Side rails up X2. Adult w/ patient. Pulse ox as6 on. NIBP on. Warm blanket given. 22:04 Inserted saline lock: 20 gauge in left antecubital area, using aseptic technique. ke1 22:36 Alex Chambers RN is Primary Nurse. ke1 02/07 00:27 Primary Nurse role handed off by Alex Chambers, LILLIAN kd3 00:27 Brittany Mills, LILLIAN is Primary Nurse. kd3 00:32 Kodi White MD is Referral Physician. rn 00:34 No provider procedures requiring assistance completed. IV discontinued. ke1 Administered Medications: 02/06 22:16 Drug: NS 0.9% 1000 ml Route: IV; Rate: 1 bolus; Site: left antecubital; ke1 02/07 00:40 Follow up: IV Status: Completed infusion ke1 02/06 22:16 Drug: Pepcid (famotidine) 20 mg Route: IVP; Site: left antecubital; ke1 22:37 Follow up: Response: Nausea is decreased ke1 22:16 Drug: Phenergan (promethazine) 12.5 mg Route: IVP; Site: left antecubital; ke1 22:37 Follow up: Response: Nausea is decreased ke1 23:14 Drug: Phenergan (promethazine) 12.5 mg Route: IVP; Site: left antecubital; ke1 02/07 00:28 Follow up: Response: Nausea is decreased kd3 Outcome: 00:32 Discharge ordered by MD. rn 00:34 Discharged to home ambulatory. ke1 00:35 Condition: good ke1 00:44 Discharge instructions given to patient. ke1 00:44 Patient left the ED. ke1 Signatures: Sergio Ramsey MD MD rn Alexander, Jessica ja2 Boris Loza RN RN as6 Brittany Mills RN RN kd3 Alex Chambers RN RN ke1 Corrections: (The following items were deleted from the chart) 00:33 00:27 Reassessment: Patient appears in no apparent distress at this time. Patient ke1 states feeling better. Patient states symptoms have improved. kd3 00:34 00:28 BP 138 / 98; Pulse 58bpm; Resp 18bpm; Pulse Ox 99% RA; kd3 ke1
--- NOTE | 2022-02-07 00:34 | EDPHYS ---
Physician Documentation [facility] Name: Memo Estevez Age: 21 yrs Sex: Male : 2000 Arrival Date: 02/06/2022 Time: 21:35 Bed 7 Private MD: ED Physician Sergio Ramsey HPI: 02/06 22:29 This 21 yrs old Male presents to ER via Wheelchair with complaints of rn Nausea/Vomiting. 22:29 The patient presents to the emergency department with nausea, vomiting. Onset: The rn symptoms/episode began/occurred 1 week(s) ago. Possible causes: unknown. The symptoms are aggravated by food , The symptoms are alleviated by prescription meds. Associated signs and symptoms: Pertinent positives: nausea, vomiting, Pertinent negatives: abdominal pain, fever, GI bleeding. Severity of symptoms: At their worst the symptoms were moderate in the emergency department the symptoms are unchanged. The patient has experienced a previous episode. The patient has been recently been admitted at [facility]. Pt reports just admitted for 3 days in hospital here, discharged today, felt better with phenergan in hospital, went home and started to throw up again. Denies fever/abd pain. No blood in stool or emesis. Does not smoke marijuana. Denies drug use. Told to f/u with GI. Denies alcoholism. . Historical: - Allergies: 21:51 No Known Allergies; as6 - Home Meds: 21:51 None [Active]; as6 - PMHx: 21:51 None; as6 - PSHx: 21:51 Cholecystectomy; as6 - Immunization history:: Client reports receiving the 2nd dose of the Covid vaccine, pfizer. - Social history:: Smoking status: Patient denies any tobacco usage or history of. - Family history:: not pertinent. - Hospitalizations: : The patient was recently seen at [facility]. ROS: 22:29 Constitutional: Negative for fever, chills, and weight loss, Eyes: Negative for injury, rn pain, redness, and discharge, Neck: Negative for injury, pain, and swelling, Cardiovascular: Negative for chest pain, palpitations, and edema, Respiratory: Negative for shortness of breath, cough, wheezing, and pleuritic chest pain, Abdomen/GI: + nausea/vomiting, negative for abdominal pain Back: Negative for injury and pain, : Negative for injury, bleeding, discharge, and swelling, MS/Extremity: Negative for injury and deformity, Skin: Negative for injury, rash, and discoloration, Neuro: Negative for headache, weakness, numbness, tingling, and seizure. Exam: 22:29 Constitutional: This is a well developed, well nourished patient who is awake, alert, rn holding emesis bag Head/Face: Normocephalic, atraumatic. Eyes: Periorbital areas with no swelling, redness, or edema. ENT: dry MM Cardiovascular: Regular rate and rhythm. No pulse deficits. Respiratory: No increased work of breathing, no retractions or nasal flaring. Abdomen/GI: soft, non-tender, no masses, no peritoneal signs Skin: Warm, dry MS/ Extremity: Pulses equal, no cyanosis. Neuro: Awake and alert, GCS 15 Vital Signs: 21:47 BP 134 / 98; Pulse 73; Resp 20 S; Temp 98.4(O); Pulse Ox 96% on R/A; Weight 90.72 kg as6 (R); Height 5 ft. 8 in. (172.72 cm) (R); Pain 0/10; 22:16 BP 126 / 78; Pulse 53; Resp 18; Pulse Ox 100% on R/A; ke1 23:16 BP 138 / 84; Pulse 73; Resp 18; Pulse Ox 100% on R/A; ke1 02/07 00:28 BP 138 / 98; Pulse 58; Resp 18; Pulse Ox 99% on R/A; ke1 02/06 21:47 Body Mass Index 30.41 (90.72 kg, 172.72 cm) as6 MDM: 02/06 21:36 Patient medically screened. rn 23:01 ED course: Pt feels a little better, still nauseated, but not throwing up. Pt states rn this has happened several times in past, has been admitted for 1-2 weeks at times, no etiology found before either. No famhx of IBD. . 02/07 00:31 Differential diagnosis: Nonspecific abd pain, gastritis, viral gastroenteritis, rn gastroenteritis, cyclic vomiting syndrome. Data reviewed: vital signs, nurses notes, old medical records, lab test result(s), and as a result, I will discharge patient. Counseling: I had a detailed discussion with the patient and/or guardian regarding: the historical points, exam findings, and any diagnostic results supporting the discharge/admit diagnosis, lab results, the need for outpatient follow up, to return to the emergency department if symptoms worsen or persist or if there are any questions or concerns that arise at home. Response to treatment: the patient's symptoms have markedly improved after treatment, and as a result, I will discharge patient. 02/06 21:51 Order name: CBC with Diff; Complete Time: 22:36 rn 02/06 21:51 Order name: CMP; Complete Time: 22:36 rn 02/06 21:51 Order name: Lipase; Complete Time: 22:36 rn 02/06 21:51 Order name: IV Saline Lock; Complete Time: 22:04 rn 02/06 21:51 Order name: Labs collected and sent; Complete Time: 22:05 rn Administered Medications: 02/06 22:16 Drug: NS 0.9% 1000 ml Route: IV; Rate: 1 bolus; Site: left antecubital; ke1 02/07 00:40 Follow up: IV Status: Completed infusion ke1 02/06 22:16 Drug: Pepcid (famotidine) 20 mg Route: IVP; Site: left antecubital; ke1 22:37 Follow up: Response: Nausea is decreased ke1 22:16 Drug: Phenergan (promethazine) 12.5 mg Route: IVP; Site: left antecubital; ke1 22:37 Follow up: Response: Nausea is decreased ke1 23:14 Drug: Phenergan (promethazine) 12.5 mg Route: IVP; Site: left antecubital; ke1 02/07 00:28 Follow up: Response: Nausea is decreased kd3 Disposition Summary: 02/07/22 00:32 Discharge Ordered Location: Home rn Problem: chronic rn Symptoms: have improved rn Condition: Stable rn Diagnosis - Cyclical vomiting, not intractable rn Followup: rn - With: Kodi White MD - When: As needed - Reason: Recheck today's complaints, Re-evaluation by your physician Discharge Instructions: - Discharge Summary Sheet rn - Nausea and Vomiting, Adult rn - Cyclic Vomiting Syndrome, Adult rn Forms: - Medication Reconciliation Form rn - Thank You Letter rn - Antibiotic network intern - Prescription Opioid Use rn Prescriptions: - promethazine 25 mg Oral Tablet - take 1 tablet by ORAL route every 6 hours As needed; 15 tablet; Refills: 0, rn Product Selection Permitted Signatures: Dispatcher [employer] EDSergio Trammell MD MD rn Slawson, Ashby, RN RN as6 Alex Chambers RN RN ke1 Brittany Mills RN kd3
[2022-02-07 00:52] VITALS: TEMP 98.4
[2022-02-07 00:57] VITALS: BP 138/98; O2SAT 99
== END 2022-02-07 00:44 | disposition home or self-care (01) ==
LOC: ER 21:33
DX: R11.15 Cyclical vomiting syndrome unrelated to migraine (principal)
CPT/HCPCS: 36415; 80053; 83690; 85025; 96361; 96374; 96375; 99284; J2550; J3490; J7030